=== PATIENT | male | born 1975 | race Caucasian/White ===

== ENCOUNTER 2021-07-15 10:29 | Emergency (ER) | payer OTHER, SELFPAY ==
[2021-07-15 12:01] VITALS: BP 142/90; PULSE 90; RESP 19; TEMP 37.4; O2SAT 96; BMI 34.5
--- NOTE | 2021-07-15 12:05 | HMH.EDUTC ---
[facility] [place] Disposition Clinical Impression: Viral syndrome, Exposure to COVID-19 virus Disposition: Home, Self-Care Condition on Discharge: Good Instructions: DI for Viral Syndrome, DI for COVID-19 (Suspected or Confirmed ), Preventing the Spread of Coronavirus Discharge Instructions Additional Instructions: *Monitor Temp, Over the counter Motrin or Tylenol as directed/as needed Tylenol every 4 hours and Motrin every 6 hours (as long as your family doctor has told you that you can take it) for fever or pain. and straight to ER if unable to lower temp less than 101.0 after medication given *Warm salt water gargles may help to soothe the throat *Throat Lozenges *Warm fluids like tea with honey may help to soothe the throat *Sleep elevated *Humidifier/Vaporizer Follow up IMMEDIATELY for new or worsening symptoms or no Noticeable improvement over the next 48-72 hours. 911 for difficulty breathing or swallowing You were tested for today for COVID19 your test result should be back in the next 24-48 hours, you check your results on the [facility] [employer] health portal if you have trouble logging on or seeing your results you may call You was given a handout with instructions for Self Quarantine and Self isolation for while you wait on test results and what to do if they are positive If you are positive the Health Dept will be contacting you also Make sure to take your Vitamins Vit. C Vit D and Zinc if you can take them Prescriptions: Benzonatate [Benzonatate 100mg cap] 100 mg PO TID PRN #15 cap PRN Reason: Cough Transmission Status: Pending to [id number] Referrals: Sari Raza APRN [Primary Care Provider] - As needed Forms: Work/School Release Time of Disposition: 12:08 Medical Decision Making - Jp Inquiry Pt receiving controlled substance: No Jp was queried for this patient: No Vital Signs: 07/15/21 12:01 Temperature 99.3 F Temperature Source Oral Pulse Rate [Left Radial] 90 Respiratory Rate 19 Blood Pressure [Left Arm] 142/90 H Blood Pressure Mean [Left Arm] 107 Blood Pressure Source [Left Arm] Automatic Cuff Blood Pressure Position [Left Arm] Sitting 02 Sat by Pulse Oximetry 96 Oxygen Delivery Method Room Air Orders (Tests/Meds): ORDERS Category Date Time Status Covid-19 Nasal PCR ([facility]) Routine Lab 07/15/21 12:01 Ordered [facility] [place] HPI - General Stated complaint: sore throat,cough,body aches Time Seen by Provider: 07/15/21 12:05 Mode of Arrival: Ambulatory Source of Information: Patient Limitations: No Limitations Description of Symptoms (Recalled from Triage Doc. by RN): C/O cough, PEGUERO and bodyaches since last night HEENT Symptoms (Recalled from RN notes): Yes (PEGUERO) Resp Symptoms (Recalled from RN notes): Yes (cough) Skin Symptoms (Recalled from RN notes): No MS Symptoms (Recalled from RN notes): Yes (bodyahces) Functional Status (Recalled from RN notes): n/a - History of Present Illness Provider Complaint: Patient state that recently tested positive for COVID state that last night he started having naggy cough, headache, body aches and pain in both ears States that today he was still having symptoms so he came in to get checked and tested - Related Data Home Medications Medication Instructions Recorded Confirmed Amlodipine Besylate [Amlodipine 10 mg PO DAILY 09/12/18 09/12/18 10mg Tab] Aspirin [Aspirin 325mg Tab] 325 mg PO DAILY 09/12/18 09/12/18 Diclofenac Sodium [Diclofenac 100 mg PO DAILY 09/12/18 09/12/18 Sodium ER] Omeprazole [Omeprazole 40mg 40 mg PO DAILY 09/12/18 09/12/18 Capsule] Sertraline HCl [Zoloft 100mg 100 mg PO DAILY 09/12/18 09/12/18 tablet] Triamterene/Hydrochlorothiazid 1 each PO DAILY 09/12/18 09/12/18 [Dyazide 37.5-25 Capsule] Previous Rx's Medication Instructions Recorded Benzonatate [Benzonatate 100mg 100 mg PO TID PRN #15 cap 07/15/21 cap] Allergies Allergy/AdvReac Type Severity Reaction Status Date
[2021-07-15 12:17] VITALS: BP 142/90; PULSE 90; RESP 19; TEMP 37.4; O2SAT 96
== END 2021-07-15 12:19 | disposition home or self-care (01) ==
PROVIDERS: Emergency Provider Nurse Practitioner; PCP Nurse Practitioner Family
DX: U07.1 COVID-19 (principal); I10 Essential (primary) hypertension; I48.91 Unspecified atrial fibrillation
CPT/HCPCS: 99202; C9803; G0463; U0003; U0005